=== PATIENT | male | born 1950 | race Caucasian/White ===

== ENCOUNTER 2023-08-12 00:59 | Emergency (ER) | payer MEDICARE, OTHER, SELFPAY ==
[2023-08-12 01:20] VITALS: BP 160/92
[2023-08-12 02:03] VITALS: BMI 27.2
--- NOTE | 2023-08-12 02:07 | ED.GENMED ---
History of Present Illness
<ROLANDO Conley - Last Filed: 08/12/23 02:29>
General
Chief Complaint: Allergic Reaction
Source: patient and spouse
Exam Limitations: none
Time Seen by Provider: 08/12/23 01:50
Travel History
Have you had any contact with someone who has COVID-19?: No
Do you have any symptoms of coronavirus? Fever > 100 degrees, chills, cough, shortness of breath, sore throat, loss of taste or smell, muscle aches, or headache?: No
History of Present Illness
History of Present Illness:
72 year old male with hx of HLD, [place] with cardiac stents who presents with R facial redness and swelling that began 6 days ago. Pt developed blistering to the R forehead 2 days later. He woke up the following day with swelling to the R upper and
lower eyelids and the blisters scabbed over. He reports increased tearing to the R eye. Also reports dull head ache. Denies any drainage or bleeding from blisters. Denies pain, itching, stinging to the face. Denies eye pain, vision changes. He woke
up this evening with watery L eye and became concerned, prompting his visit to the ER. Additionally, pt states he was being treated for lyme's with doxycycline. He was initially on a 14 day course which was extended for 7 more days by PCP. Pt began
developing symptoms and stopped on the day of doxy. He works for a [employer] company and is out in the sun all day. States he wears a had and covers his face with zinc oxide. Reports his face is usually red but what was new was the forehead
redness and blistering along with the eye swelling. Denies fevers/chills, chest pain, SOB, sore throat, cough. He has not had the shingles shot.
Past History
<ROLANDO Conley - Last Filed: 08/12/23 02:29>
Past History
ED Past Medical History: Hypercholesterolemia
ED Past Surgical History: Other (hernia)
Social History
Tobacco: Non-smoker
Alcohol: Occasional
Drug: None
Personal:
Living: with family
Employment: Employed
Family History
Family History: Hypertension
Review of Systems
<ST JarvisCT - Last Filed: 08/12/23 02:29>
Review of Systems
Allergies reviewed?: Yes
All Other Systems: ROS reviewed and negative except as documented in HPI and ROS
Constitutional: Reports no symptoms
EENT: Reports no symptoms
Respiratory: Reports no symptoms
Cardiac: Reports no symptoms
ABD/GI: Reports no symptoms
: Reports no symptoms
Musculoskeletal: Reports no symptoms
Skin: Reports other (scabs to the R forehead with R eye swelling)
Neurological: Reports headache
Endocrine: Reports no symptoms
Hematologic/Lymphatic: Reports no symptoms
Psychiatric: Reports no symptoms
Phy Exam
<August Muro [facility] - Last Filed: 08/12/23 02:29>
General Physical Exam
General Presentation: well appearing and no apparent distress
General age: appears stated age
General Skin: dry and feels hot
General Habitus: normal
General Mental: alert
ENT Exam
ENT Exam: EOMI and pharynx normal
Eye Exam
Eye Exam: PERRL, EOMI and other (tearing to R eye with conjunctival injection)
Cardiovascular Exam
Cardiovascular Exam: regular rate/rhythm, no edema and no murmur
Pulmonary Exam
Pulmonary Exam: lungs clear, no respiratory distress, no rales, no crackles, no rhonchi, no wheezing and no cough
Neurological Exam
Neurological Exam: alert and oriented x3
Skin Exam
Skin Exam: other (redness to the face, more pronounced in the R V1 facial distribution, scabbing to the R forehead, no active or purulence, face feels hot to touch)
Psychiatric Exam
Psychiatric Exam: normal mood/affect
Course
<ROLANDO Conley - Last Filed: 08/12/23 02:29>
Orders/Labs/Results
Orders:
Orders
08/12/23 03:08
CMP [Comprehensive Metabolic Panel] Urgent
Complete Blood Count/With Diff Urgent
08/12/23 04:36
CT Orbits W/o Iv Contrast Urgent
Reason For Exam: eye swelling
08/12/23 04:59
Fluorescein Sodium [Ful-Jeny] 1 mg .ROUTE .STK-MED ONE
Tetracaine HCl [Tetracaine 0.5% Ophthalmic Solution] 1 drop .ROUTE .STK-MED ONE
08/12/23 06:09
Cefdinir [Omnicef] 300 mg PO NOW STA
Clindamycin HCl [Cleocin] 300 mg PO NOW STA
Abnormal Lab Results
08/12/23
03:08
Absolute Lymphs (auto) 1.1 L 10^3/uL
(1.2-3.4)
Absolute Monos (auto) 0.7 H 10^3/uL
(0.1-0.6)
Immature Gran % 0.6 H %
(0-0.5)
Lymphocytes % 16.4 L %
(20.5-51.1)
Monocytes % 10.2 H %
(1.7-9.3)
Chloride 109 H mmol/L
(98-107)
Glucose 107 H mg/dl
(70-99)
Albumin 3.4 L g/dl
(3.5-5.0)
08/12/23 03:08
08/12/23 03:08
Vital Signs
Initial and Last Documented VS:
Initial Vital Signs
Temp Pulse BP Pulse Ox
100.5 F H 74 160/92 97
08/12/23 01:20 08/12/23 01:20 08/12/23 01:20 08/12/23 01:20
Last Documented Vital Signs
Temp Pulse Resp BP Pulse Ox
98.9 F 64 18 130/76 97
08/12/23 03:54 08/12/23 05:00 08/12/23 04:04 08/12/23 05:00 08/12/23 06:00
<Hood Jefferson, DO - Last Filed: 08/12/23 06:30>
Orders/Labs/Results
Orders:
Orders
08/12/23 03:08
CMP [Comprehensive Metabolic Panel] Urgent
Complete Blood Count/With Diff Urgent
08/12/23 04:36
CT Orbits W/o Iv Contrast Urgent
Reason For Exam: eye swelling
08/12/23 04:59
Fluorescein Sodium [Ful-Jeny] 1 mg .ROUTE .STK-MED ONE
Tetracaine HCl [Tetracaine 0.5% Ophthalmic Solution] 1 drop .ROUTE .STK-MED ONE
08/12/23 06:09
Cefdinir [Omnicef] 300 mg PO NOW STA
Clindamycin HCl [Cleocin] 300 mg PO NOW STA
Abnormal Lab Results
08/12/23
03:08
Absolute Lymphs (auto) 1.1 L 10^3/uL
(1.2-3.4)
Absolute Monos (auto) 0.7 H 10^3/uL
(0.1-0.6)
Immature Gran % 0.6 H %
(0-0.5)
Lymphocytes % 16.4 L %
(20.5-51.1)
Monocytes % 10.2 H %
(1.7-9.3)
Chloride 109 H mmol/L
(98-107)
Glucose 107 H mg/dl
(70-99)
Albumin 3.4 L g/dl
(3.5-5.0)
08/12/23 03:08
08/12/23 03:08
Vital Signs
Initial and Last Documented VS:
Initial Vital Signs
Temp Pulse BP Pulse Ox
100.5 F H 74 160/92 97
08/12/23 01:20 08/12/23 01:20 08/12/23 01:20 08/12/23 01:20
Last Documented Vital Signs
Temp Pulse Resp BP Pulse Ox
98.9 F 64 18 130/76 97
08/12/23 03:54 08/12/23 05:00 08/12/23 04:04 08/12/23 05:00 08/12/23 06:00
<ROLANDO Conley - Last Filed: 08/12/23 02:29>
MDM/Problems Addressed
Differential Diagnosis Includes:
shingles, hypersensitivity reaction to sun due to doxycycline
MDM/Problems Addressed:
72 year old male who presents with redness, swelling to the R face and eye with scabbing over R forehead that began 6 days ago.
Chronic conditions affecting care: Other (HLD, [place] with cardiac stent)
<ROLANDO Conley - Last Filed: 08/12/23 02:29>
*Critical Care Note
Total Time (30-74mins, 75-104mins- exclusive of procedures): Not Applicable
<Hood Jefferson DO - Last Filed: 08/12/23 06:30>
Update Note
Update Note:
CT orbits
IMPRESSION:
Superficial right periorbital skin thickening could be preseptal cellulitis. No evidence of postseptal extension. No masses or walled-off fluid collections.
Prior cataract surgery
Visualized sinuses are clear
Partial left mastoid effusion
ED Attending Note
<ROLANDO Conley - Last Filed: 08/12/23 02:29>
-
Portions of this chart may have been created with voice recognition software.� Occasional wrong word or��sound alike� substitutions may have occurred due to the inherent limitations of voice recognition software.
<Hood Jefferson DO - Last Filed: 08/12/23 06:30>
ED Attending Note
Patient seen and examined by attending physician: Yes
I performed the substantive portion of visit, reviewed & personally made and approve the management plan that is documented in note by myself or ELAYNE.: Yes
ED Attending Note:
This a pleasant 72-year-old male who presents with right facial redness and swelling that began 6 days ago. Patient has been on doxycycline for Lyme disease. He took 20 days of the antibiotic. Patient states that he has had eye swelling and
tearing for the last few days. Patient developed redness after being out in the sun for while on the doxycycline.
Discharge Plan
Departure
Patient Disposition: Home (Routine Discharge)
Date of Disposition: 08/12/23
Time of Disposition: 06:10
Patient with high blood pressure during this ER visit?: Yes
Condition: Good
Discharge Problem:
Preseptal cellulitis of right eye, Medication reaction
Prescriptions:
New
cefdinir 300 mg capsule
300 mg PO BID Qty: 14 0RF
clindamycin HCl 300 mg capsule
300 mg PO TID Qty: 21 0RF
No Action
aspirin 81 MG tablet,delayed release (DR/EC)
81 mg PO DAILY
Patient Comments:
took 5 baby asa today
omega 7-rah-kay-fish oil [Fish Oil] 1 EACH capsule,delayed release(DR/EC)
1 PO DAILY
Multivit with Calcium,Iron,Min Capsule
1 tab PO
clopidogrel 75 MG tablet
75 mg PO DAILY Qty: 30 11RF
lisinopril 5 MG tablet
5 mg PO DAILY Qty: 30 11RF
metoprolol tartrate 25 MG tablet
25 mg PO BID Qty: 60 11RF
pravastatin [Pravachol] 80 MG tablet
80 mg PO DAILY Qty: 30 11RF
Referrals:
Sebastien Stark PA-C [Family Provider] -
Activity Restrictions/Additional Instructions:
As discussed, please follow-up with your eye doctor to have your lens implants checked
It was a pleasure meeting you and taking part in your care. We hope for your continued healing and wellness.
Please read discharge instructions in their entirety. However, they are for general education and may not describe your exact diagnosis at discharge. Information on your ER visit and medical conditions were discussed with you along with appropriate
follow up information...
If indicated, please take your medications as instructed and indicated on discharge paperwork.
Please schedule a follow up appointment as directed. Call to schedule an appointment
Please return to the emergency department with ANY change in, persisting, or worsening of symptoms. If any of your symptoms do not improve, or persist, or become more severe within 6-12 hours, please return to the emergency department for further
care.
Please return to the emergency department if you develop a headache, neck pain/stiffness, fever greater than 100.4F, chest pain, shortness of breath, persistent nausea, vomiting, slurred speech, difficulty walking, numbness/tingling, weakness, signs
of infection or any other symptoms that are worrisome to you.
If you have any questions or concerns please do not hesitate to call the Hospital at or E-mail me directly at [email or web address]
Interventions
Interventions:
*Risk Screen - Suicide Last Done: 08/12/23 01:20
*General Assessment Last Done: 08/12/23 01:20
*Neglect/Abuse Screening Last Done: 08/12/23 01:20
ED- Fall Risk Assessment Last Done: 08/12/23 01:20
*ED COVID-19 Vaccine History Last Done: 08/12/23 01:20
ED- Cardiac Assessment Last Done: 08/12/23 02:03
ED- Pulmonary Assessment Last Done: 08/12/23 02:03
ED-Skin Assessment Last Done: 08/12/23 02:03
Discharge Date and Time
Print Language: GUATEMALAN
[2023-08-12 03:18] LABS: % Basophils 0.4 % (0-2); % Eosinophils 3.5 % (0-6); % Immature Granulocytes 0.6 % (0-0.5); % Lymphocytes 16.4 % (20.5-51.1); % Monocytes 10.2 % (1.7-9.3); % Neutrophils 68.9 % (42.2-75.2); Absolute Eosinophils 0.2 10^3/uL (0-0.7); Absolute Lymphocytes 1.1 10^3/uL (1.2-3.4); Absolute Monocytes 0.7 10^3/uL (0.1-0.6); Absolute Neutrophils 4.8 10^3/uL (1.4-6.5); Hematocrit 43.2 % (39.0-52.0); Hemoglobin 15.1 g/dL (13.0-18.0); Mean Corpuscular Hgb 30.3 pg (27.0-31.0); Mean Corpuscular Volume 86.7 fL (80.0-94.0); Mean Platelet Volume 9.3 fL (7.4-10.4); Nucleated Red Blood Cells % 0 % (-); Platelet Count 144 10^3/uL (130-400); Red Blood Cell Count 4.98 10^6/uL (4.70-6.10)
[2023-08-12 03:29] LABS: ALT (SGPT) 23 U/L (0-50); AST (SGOT) 34 U/L (17-59); Albumin 3.4 g/dl (3.5-5.0); Alkaline Phosphatase 69 U/L (38-126); Blood Urea Nitrogen 18 mg/dl (9-20); Calcium 9.4 mg/dl (8.4-10.2); Carbon Dioxide 23 mmol/L (22-30); Chloride 109 mmol/L (98-107); Estimated Creatinine Clearance 90 ml/min; Glucose 107 mg/dl (70-99); Potassium 4.2 mmol/L (3.5-5.1); Sodium 138 mmol/L (135-145); Total Bilirubin 0.7 mg/dl (0.2-1.3); Total Protein 6.5 g/dl (6.3-8.2); eGFR > 60.00
[2023-08-12 04:04] VITALS: BP 155/87
[2023-08-12 04:56] VITALS: BP 133/73
[2023-08-12 05:00] VITALS: BP 130/76
[2023-08-12] MEDS: CLEOCIN 300 MG PO (06:18)
[2023-08-12] MEDS: OMNICEF 300 MG PO (06:19)
== END 2023-08-12 06:25 | disposition home or self-care (01) ==
LOC: EMR 00:59
PROVIDERS: EMERGENCY PHYSICIAN Student in an Organized Health Care Education/Training Program; FAMILY PHYSICIAN Physician Assistant Medical
DX: L03.213 Periorbital cellulitis (principal); T36.4X5A Adverse effect of tetracyclines, initial encounter; R03.0 Elevated blood-pressure reading, without diagnosis of hypertension; E78.00 Pure hypercholesterolemia, unspecified
CPT/HCPCS: 99284; 70480; 80053; 85025